=== PATIENT | female | born 1970 ===

== ENCOUNTER 2016-08-23 18:33 | Emergency (ER) | payer OTHER ==
[2016-08-23] MEDS ORDERED: Oxycodone/Acetaminophen 5/325 mg Tab ONE (19:06)
[2016-08-23] MEDS ORDERED: Oxycodone/Acetaminophen 5/325 mg Tab PO STA (19:10)
--- NOTE | 2016-08-23 20:25 | C.PDOC ---
History Of Present Illness 46 y/o female presents to ED with c/o right shoulder pain over the past 3 days. Patient reports she was trying to lift herself off the bed today and felt a pull in the right shoulder. She states the pain progressively worsened, prompting visit. Denies fall or trauma, numbness, weakness, chest pain, or SOB. She notes pain worsens with movement of the right arm. Time Seen by Provider: 08/23/16 19:33 Chief Complaint (Nursing): Upper Extremity Problem/Injury History Per: Patient History/Exam Limitations: no limitations Onset/Duration Of Symptoms: Days Current Symptoms Are (Timing): Worse Quality: "Pain" Exacerbating Factor(s): Movement Recent travel outside of the [place]: No Past Medical History Reviewed: Historical Data, Nursing Documentation, Vital Signs Vital Signs: Last Vital Signs Temp 97.8 F 08/23/16 21:01 Pulse 85 08/23/16 21:01 Resp 16 08/23/16 21:01 BP 104/71 08/23/16 21:01 Pulse Ox 97 08/23/16 21:01 - Medical History PMH: HTN Family History: States: Unknown Family Hx - Social History Hx Alcohol Use: No Hx Substance Use: No - Immunization History Hx Tetanus Toxoid Vaccination: No Hx Influenza Vaccination: No Review Of Systems Except As Marked, All Systems Reviewed And Found Negative. Constitutional: Negative for: Fever, Chills Cardiovascular: Negative for: Chest Pain Respiratory: Negative for: Shortness of Breath Gastrointestinal: Negative for: Nausea, Vomiting, Abdominal Pain Musculoskeletal: Positive for: Shoulder Pain. Negative for: Neck Pain, Back Pain Skin: Negative for: Rash Neurological: Negative for: Weakness, Numbness Physical Exam - Physical Exam Appears: Non-toxic, No Acute Distress Skin: Normal Color, Warm, Dry Head: Atraumatic, Normacephalic Neck: Normal ROM, No Midline Cervical Tenderness, No Paracervical Tenderness, No Step Off Deformity, Supple Chest: Symmetrical, No Tenderness Cardiovascular: Rhythm Regular, No Murmur Respiratory: Normal Breath Sounds, No Rales, No Rhonchi, No Wheezing Gastrointestinal/Abdominal: Soft, No Tenderness Back: Normal Inspection, No Vertebral Tenderness, No Paraspinal Tenderness Extremity: Normal ROM (right elbow and wrist), Tenderness (anterior right shoulder), Capillary Refill (< 2 sec.), No Deformity, No Swelling Extremity: Right: Limited ROM To Joint (right shoulder, secondary to pain), Bilateral: Normal Color And Temperature Pulses: Left Radial: Normal, Right Radial: Normal Neurological/Psych: Oriented x3, Normal Motor, Normal Sensation ED Course And Treatment O2 Sat by Pulse Oximetry: 98 (RA) Pulse Ox Interpretation: Normal - Other Rad Right Shoulder XR X-Ray: Interpreted by Me, Viewed By Me Interpretation: negative for acute fx or dislocation Progress Note: X-ray ordered and reviewed. Treated with Percocet and Toradol IM. On re-exam, the patient reports improvement of symptoms. Sling was applied by technical support technician and checked by me Disposition - Disposition Referrals: Jamarcus Bai MD [Staff Provider] - [facility] [Outside] Disposition: HOME/ ROUTINE Disposition Time: 20:43 Condition: GOOD Additional Instructions: Follow up with the Orthopedist doctor within 1-2 days. Return if worsened. Prescriptions: diaZEpam [Valium] 5 mg PO TID #21 tab Naproxen [Naprosyn] 500 mg PO BID #20 tab traMADol [Ultram] 50 mg PO Q6 PRN #20 tab PRN Reason: Pain Instructions: Rotator Cuff Injury (GEN) Print Language: UPPER SORBIAN - POA Present On Arrival: None - Clinical Impression Clinical Impression: Muscle strain, Shoulder sprain - PA / COUNTY COURT JUDGE / Resident Statement MD/DO has reviewed & agrees with the documentation as recorded. - Scribe Statement The provider has reviewed the documentation as recorded by the Leeleeibbrisa Herndon All medical record entries made by the Leeleeibbrisa were at my direction and personally dictated by me. I have reviewed the chart and agree that the record accurately reflects my personal performance of the history, physical exam, medical decision making, and the department course for this patient. I have also personally directed, reviewed, and agree with the discharge instructions and disposition.
[2016-08-23 21:02] VITALS: BP 104/71; PULSE 85; RESP 16; TEMP 97.8
--- NOTE | 2016-08-24 10:46 | RAD ---
PROCEDURE: Radiographs of the Right Shoulder HISTORY: r/o dislocation COMPARISON: No prior. FINDINGS: BONES: There is an apparent transverse lucency in the humeral head. Bone mineralization is normal. There is no bone destruction. JOINTS: Bone alignment is normal. No evidence of dislocation. 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 SOFT TISSUES: Normal. OTHER FINDINGS: None. IMPRESSION: 1. Apparent transverse lucency in the humeral head could represent a nondisplaced fracture. If clinically indicated, CT scan may be performed for further evaluation. 2. No evidence of dislocation.
[2016-08-25 06:04] VITALS: O2SAT 98
== END 2016-08-23 21:06 | disposition home or self-care (01) ==
LOC: C.ER 18:33
DX: S46.911A Strain of unspecified muscle, fascia and tendon at shoulder and upper arm level, right arm, initial encounter (principal); X58.XXXA Exposure to other specified factors, initial encounter; Y92.003 Bedroom of unspecified non-institutional (private) residence as the place of occurrence of the external cause
CPT/HCPCS: 73030; 96372; 99285; J1885

== ENCOUNTER 2018-03-13 08:56 | Outpatient (CLI) | payer OTHER | END 2018-03-13 08:57 | disposition home or self-care (01) | LOC: C.CARD 08:56 | DX: Z98.890 Other specified postprocedural states (principal); Z13.9 Encounter for screening, unspecified; E11.9 Type 2 diabetes mellitus without complications ==

== ENCOUNTER 2018-07-07 09:34 | Emergency (ER) | payer OTHER ==
[2018-07-07 09:54] VITALS: BP 103/69; PULSE 89; RESP 18; TEMP 98.1; O2SAT 100
[2018-07-07 11:23] LABS: BASO % 0.2 % (0.0-2.0); EOS # 0.1 K/uL (0.0-0.7); EOS % 0.6 % (0.0-4.0); HEMOGLOBIN 11.6 g/dL (11.0-16.0); LYMPH # 2.2 K/uL (1.0-4.3); LYMPH % 18.9 % (20.0-40.0); MEAN CELL VOLUME 91.7 fL (81.0-99.0); MEAN CORPUSCULAR HEMOGLOBIN 29.9 pg (27.0-31.0); MEAN CORPUSCULAR HGB CONC 32.6 g/dL (33.0-37.0); MONO # 0.5 K/uL (0.0-0.8); MONO % 4.4 % (0.0-10.0); NEUT # 8.8 K/uL (1.8-7.0); NEUT % 75.9 % (50.0-75.0); RBC 3.87 Mil/uL (3.80-5.20); RED CELL DISTRIBUTION WIDTH 13.7 % (11.5-14.5)
[2018-07-07 11:24] LABS: WHITE BLOOD COUNT 11.7 K/uL (4.8-10.8)
[2018-07-07 11:26] LABS: INR 2.1; PROTHROMBIN TIME 22.8 SECONDS (9.7-12.2)
--- NOTE | 2018-07-07 12:21 | C.PDOC ---
History Of Present Illness 48 y/o female presents to the ER complaining of bilateral lower tibia ecchymosis which has been present for the past 5 days. Patient states that she has pain with walking. Patient reports that she is currently on Coumadin for mitral valve replacement. She notes that she usually goes to [facility] and she had her INR checked 2 weeks ago. Denies having trauma, falls, and injuries. Time Seen by Provider: 07/07/18 10:51 Chief Complaint (Nursing): Lower Extremity Problem/Injury History Per: Patient History/Exam Limitations: no limitations Onset/Duration Of Symptoms: Days Current Symptoms Are (Timing): Still Present Severity: Moderate Past Medical History Reviewed: Historical Data, Nursing Documentation, Vital Signs Vital Signs: Last Vital Signs Temp 98.1 F 07/07/18 09:51 Pulse 89 07/07/18 09:51 Resp 18 07/07/18 09:51 BP 103/69 07/07/18 09:51 Pulse Ox 100 07/07/18 09:51 - Medical History PMH: HTN Other Surgeries: Hx of surgeries Family History: States: No Known Family Hx - Social History Hx Alcohol Use: No Hx Substance Use: No - Immunization History Hx Tetanus Toxoid Vaccination: No Hx Influenza Vaccination: No Review Of Systems Except As Marked, All Systems Reviewed And Found Negative. Musculoskeletal: Positive for: Leg Pain Skin: Positive for: Bruising (bilateral legs) Neurological: Negative for: Weakness, Numbness Physical Exam - Physical Exam Appears: Non-toxic, No Acute Distress Skin: Normal Color, Warm, Dry, Other (small resolving subcutaneous hematomas in bilateral tibia region (L>R)) Head: Atraumatic, Normacephalic Eye(s): bilateral: Normal Inspection Nose: Normal Oral Mucosa: Moist Neck: Supple Chest: Symmetrical Neurological/Psych: Oriented x3, Normal Speech ED Course And Treatment - Laboratory Results Result Diagrams: 07/07/18 11:09 Lab Results: PT 22.8 SECONDS (9.7-12.2) H 07/07/18 11:09 INR 2.1 07/07/18 11:09 Lab Interpretation: Normal (INR 2.1 (theraputic INR on Coumadin target 2-3)) O2 Sat by Pulse Oximetry: 100 (RA) Pulse Ox Interpretation: Normal Medical Decision Making Medical Decision Making: b/l llower leg small resolving hematomas of lower tibial areas INR 2.1 theraputic on Coumadin for MVR opt f/u in Clinic Disposition Doctor Will See Patient In The: Office Counseled Patient/Family Regarding: Studies Performed, Diagnosis - Disposition Referrals: [facility] [Outside] [facility] [Outside] [facility] [Outside] [facility] [Outside] Disposition: HOME/ ROUTINE Disposition Time: 12:20 Condition: GOOD Additional Instructions: INR 2.1 (theraputic INR on Coumadin target 2-3) Sigue hielo 1/2 hora por hora, nada caliente Ibuprofeno 400 mg cada 6 horas lexi necessario para triston Sigue con la [facility] lexi necessario Forms: [facility] (Palauan) - Clinical Impression Clinical Impression: Superficial bruising of lower leg - Scribe Statement The provider has reviewed the documentation as recorded by the Scribe Sri Licona Provider Attestation: All medical record entries made by the Scribe were at my direction and perso sonia dictated by me. I have reviewed the chart and agree that the record accurately reflects my personal performance of the history, physical exam, medical decision making, and the department course for this patient. I have also personally directed, reviewed, and agree with the discharge instructions and disposition.
== END 2018-07-07 12:43 | disposition home or self-care (01) ==
LOC: C.ER 09:34
DX: S80.12XA Contusion of left lower leg, initial encounter (principal); S80.11XA Contusion of right lower leg, initial encounter; X58.XXXA Exposure to other specified factors, initial encounter; Z95.2 Presence of prosthetic heart valve; Z79.01 Long term (current) use of anticoagulants; I10 Essential (primary) hypertension